=== PATIENT | female | born 1930 | race African-American/Black ===

== ENCOUNTER 2018-06-05 21:18 | Emergency (ER) | payer BC, OTHER ==
[~2018-06-05] VITALS: Ht 160 cm; Wt 77.9 kg
[~2018-06-05 21:18] MED LIST: ASPIRIN81 M2 PO; BACLOFEN10 MG PO; CALCIUM 500 MG1 EACH PO; CIPROFLOXACIN250 MG PO; DIALYVITE50000 UNIT PO; Eye Drops; FLAX SEED OIL1 EACH PO; GLUCOTROL10 MG PO; GLUCOTROL5 MG PO; LANTUS 3 M100 UNITS1 SC; LIPITOR80 MG PO; LISINOPRIL40 MG PO; LOPRESSOR25 MG PO; METRONIDAZOLE500 MG PO; NEURONTIN100 MG PO; OMEGA-3 FISH O1 EAC9 PO; PLAVIX75 MG PO; PRINIVIL20 MG PO; TOPROL XL25 MG PO
[2018-06-05 22:05] LABS: HEMATOCRIT 36.6 % (36.0-46.0); HEMOGLOBIN 12.1 G/DL (11.9-15.5); MCH 32.2 PG (29.0-34.0); MCHC 33.1 G/DL (30.0-36.0); MCV 97.3 FL (83-99); PLATELET COUNT 178 K/uL (156-360); RBC DIS.WIDTH-CV 13.1 % (11.8-14.6); RBC DIS.WIDTH-SD 46.8 % (39-53); RED BLOOD COUNT 3.76 M/uL (3.80-5.20); WHITE BLOOD COUNT 6.9 K/uL (4.1-10.2)
[2018-06-05 22:06] LABS: CHLORIDE 100 mEq/L (99-109); POTASSIUM 4.8 mEq/L (3.7-5.4); SODIUM 137 mEq/L (136-147)
[2018-06-05 22:08] LABS: GLUCOSE 198 mg/dL (70-99)
[2018-06-05 22:12] LABS: CREATININE 2.5 mg/dL (0.6-1.3); GFR ESTIMATE (CALCULATED) 24 mL/min/
[2018-06-05 22:13] LABS: UREA NITROGEN (BUN) 80 mg/dL (9-23)
[2018-06-05 22:25] LABS: TROP-I INTERPRETATION NEGATIVE; TROPONIN-I 0.06 ng/mL (0.0-0.30)
[2018-06-05 23:24] VITALS: BP 125/52
== END 2018-06-05 23:25 | disposition home or self-care (01) ==
LOC: EME 21:18
DX: N28.9 Disorder of kidney and ureter, unspecified (principal); R79.89 Other specified abnormal findings of blood chemistry; I11.0 Hypertensive heart disease with heart failure; I50.9 Heart failure, unspecified; E11.9 Type 2 diabetes mellitus without complications; I25.2 Old myocardial infarction; Z79.4 Long term (current) use of insulin; Z79.82 Long term (current) use of aspirin; Z79.02 Long term (current) use of antithrombotics/antiplatelets; Z88.0 Allergy status to penicillin
CPT/HCPCS: 71045; 80048; 83880; 84484; 85027; 93005; 99281; 99284